=== PATIENT | female | born 1985 | race Caucasian/White ===

== ENCOUNTER 2018-11-26 08:09 | Inpatient (IN) | payer MEDICAID ==
[~2018-11-26] VITALS: Ht 160 cm; Wt 108.9 kg
[2018-11-26] VITALS (8 sets, daily range): BP systolic 104–137; BP diastolic 58–100; BMI 42.6
[2018-11-26 08:46] LABS: BASOPHILS 0.1 % (0-2); EOSINOPHILS 0.2 % (0-7); HEMOGLOBIN 14.7 g/dL (12-16); IMMATURE GRANULOCYTES 0.2 % (0-5); LYMPHOCYTES 12.5 % (15-50); MCH 30.1 pg (26.0-34.0); MCHC 33.4 g/dL (31.0-37.0); MEAN PLATELET VOLUME 10.8 fL (7.4-10.4); PLATELET COUNT 218 10x3/uL (130-400); RBC 4.89 10x6/uL (4.00-5.40); RDW 13.1 % (11.5-14.5); WBC 13.9 10x3/uL (4.8-10.8)
[2018-11-26 08:48] LABS: HCG URINE NEGATIVE (NEGATIVE)
[2018-11-26 08:49] LABS: APPEARANCE CLOUDY (CLEAR); BILIRUBIN NEGATIVE (NEGATIVE); COLOR YELLOW (YELLOW); GLUCOSE NEGATIVE (NEGATIVE); KETONE NEGATIVE (NEGATIVE); NITRITE NEGATIVE (NEGATIVE); PROTEIN 2+ mg/dL (NEGATIVE); UROBILINOGEN NORMAL (NORMAL)
[2018-11-26 08:50] LABS: BACTERIA MANY /hpf (NEGATIVE); EPITHELIAL CELLS 0-5 /hpf (0-5); RED CELLS - URINE 25-50 /hpf (0-5); WHITE CELLS - URINE >50 /hpf (NEGATIVE)
[2018-11-26 08:51] LABS: MUCUS >1+ /lpf (NONE SEEN)
[2018-11-26 09:00] LABS: ALBUMIN 3.4 g/dL (3.4-5.0); ALKALINE PHOSPHATASE 136 U/L (46-116); ALT (SGPT) 55 U/L (10-68); BILIRUBIN - TOTAL 0.52 mg/dL (0.2-1.3); CALC OSMOLALITY 269 mosm/kg (275-300); CALCIUM 9.1 mg/dL (8.5-10.1); CARBON DIOXIDE 29.4 mmol/L (21.0-32.0); CHLORIDE - SERUM 100 mmol/L (98-107); CREATININE - SERUM 0.7 mg/dL (0.6-1.3); GLUCOSE 106 mg/dL (74-106); POTASSIUM - SERUM 4.1 mmol/L (3.5-5.1); PROTEIN - SERUM 8.6 g/dL (6.4-8.2); SODIUM 136 mmol/L (136-145); UREA NITROGEN 7 mg/dL (7-18); eGFR NON AFRICAN AMERICAN > 90 mL/min (90-120)
[2018-11-26 09:03] LABS: AMYLASE - SERUM 37 U/L (25-115); LIPASE 67 U/L (73-393); TROPONIN-I < 0.017 ng/mL (0.000-0.060)
--- NOTE | 2018-11-26 10:00 | NUR ---
TO CT VIA STRETCHER WITH TECH
--- NOTE | 2018-11-26 10:11 | NUR ---
RTND FROM CT/ CONT TO CRY AND MOAN C/O 11/[address] ANDRES NOTIFIED
--- NOTE | 2018-11-26 10:50 | NUR ---
RESTING IN BED WITH EYES CLOSED. AROUSES EASILY WHEN NAME CALLED. CONT TO C/O PAIN "BUT A LITTLE BETTER"
--- NOTE | 2018-11-26 11:05 | NUR ---
ROCEPHIN PAUSED TO DRAW BC'S X2 AND LACTATE THEN RESTARTED
--- NOTE | 2018-11-26 12:17 | NUR ---
REPORT CALLED TO WILFREDO OSHEA BY SBAR FORMAT
--- NOTE | 2018-11-26 16:02 | NUR ---
PATIENT LAYING IN BED ON LEFT SIDE WTIH EYES CLOSED AND BREATHING EVENLY. WILL CONTINUE TO MONITOR. SR UP X 2 BED IN LOW POSITION AND CALL LIGHT IN REACH.
--- NOTE | 2018-11-26 16:31 | NUR ---
RICHARD HUBBARD IN ROOM. NEW ORDER RECEIVED FOR REGULAR DIET. RICHARD INSTRUCTED THIS NURSE TO DISCONNECT PATIENT FROM IV SO THAT PATIENT CAN WALK AROUND UNIT. ENTERED PATIENTS ROOM. PATIENT HAS RED FACE AND VISIBLY AGITATED. PATIENT STATES FORCIBLY "YOU NEED TO DISCONNECT ME FROM THIS PAUMP SO I CAN GO OUTSIDE." EXPLAINED TO PATIENT PER PREVIOUS CONVERSATION, THAT SHE IS ALLOWED TO WALK AROUND UNIT BUT NOT GO OUTSIDE. SHE PROCEEDED TO CALL THIS NURSE A FUCKING BITCH AND TOLD ME TO CALL RICHARD BECAUSE HE SAID SHE COULD GO OUTSIDE. SHE SAID IM NOT DEALING WITH YOU CUNT. CALLED RICHARD AND HE STATED THAT SHOULD COULD NOT WALK OUTSIDE BUT COULD WALK AROUND THE UNIT. I INFORMED HIM THAT SHE PREVIOUSLY REFUSED THE NICOTINE PATCH AND THAT I EDUCATED HER ON FACILITY POLICY OF NO SMOKING AND THAT SHE COULD NOT GO OUTSIDE WITH IV ACCESS OR TO SMOKE. RICHARD INFORMED THIS NURSE THAT HE WOULD SPEAK WITH ICE CREAM MACHINE OPERATOR AND CALL MEM BACK.
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
--- NOTE | 2018-11-26 19:49 | NUR ---
PT COMPLAINING OF SEVERE ABD PAIN TRAMADOL GIVEN PER APR. PT TEMP IS 100.4 ORAL WILL GIVE TYLENOL FOR FEVER. WILL CONTINUE TO MONITOR. CL IN REACH. DENIES FURTHER NEEDS. PT COMPLAINING OF BEING COLD AND CANT GET WARM. BLANKETS PROVIDED.
--- NOTE | 2018-11-27 01:30 | NUR ---
PT VISITING WITH BOYFRIEND. CL IN REACH. DENIES NEEDS AT THIS TIME. WCTM
--- NOTE | 2018-11-27 03:22 | NUR ---
PAIN PILL GIVEN FOR ABD PAIN PER MAR. CL IN REACH. DENIES FURTHER NEEDS. BOYFRIEND IN ROOM AND BROUGHT PT CHICKEN STRIPS EDUCATED ABOUT DIET. CPOC
[2018-11-27 04:30] VITALS: BP 140/85
--- NOTE | 2018-11-27 05:17 | NUR ---
PT TEMP THIS AM WAS 99.6 TYLENOL GIVEN PER MAR FOR FEVER. WILL CONTINUE TO MONITOR.
[2018-11-27 06:53] LABS: BASOPHILS 0.1 % (0-2); EOSINOPHILS 0.6 % (0-7); HEMATOCRIT 37.5 % (36.0-48.0); HEMOGLOBIN 12.1 g/dL (12-16); IMMATURE GRANULOCYTES 0.3 % (0-5); LYMPHOCYTES 18.3 % (15-50); MCH 29.4 pg (26.0-34.0); MCHC 32.3 g/dL (31.0-37.0); MCV 91.2 fL (80.0-100.0); MEAN PLATELET VOLUME 11.1 fL (7.4-10.4); MONOCYTES 6.5 % (2-11); NEUTROPHILS 74.2 % (40-80); PLATELET COUNT 192 10x3/uL (130-400); RBC 4.11 10x6/uL (4.00-5.40); RDW 13.4 % (11.5-14.5)
[2018-11-27 07:03] LABS: WBC 10.2 10x3/uL (4.8-10.8)
[2018-11-27 07:09] VITALS: BP 130/66
[2018-11-27 07:13] LABS: ALBUMIN 2.6 g/dL (3.4-5.0); ALKALINE PHOSPHATASE 114 U/L (46-116); ALT (SGPT) 47 U/L (10-68); BILIRUBIN - TOTAL 0.28 mg/dL (0.2-1.3); CALC OSMOLALITY 276 mosm/kg (275-300); CALCIUM 8.3 mg/dL (8.5-10.1); CARBON DIOXIDE 28.2 mmol/L (21.0-32.0); CHLORIDE - SERUM 105 mmol/L (98-107); GLUCOSE 122 mg/dL (74-106); POTASSIUM - SERUM 3.7 mmol/L (3.5-5.1); PROTEIN - SERUM 6.8 g/dL (6.4-8.2); SODIUM 139 mmol/L (136-145); UREA NITROGEN 7 mg/dL (7-18)
--- NOTE | 2018-11-27 07:15 | NUR ---
PT RESTING IN BED, SHIFT ASSESSMENT PERFORMED. VSS AND WNL. DENIES ANY NEEDS AT THIS TIME. WILL CONT TO FOLLOW POC
[2018-11-27 07:18] LABS: CREATININE - SERUM 0.5 mg/dL (0.6-1.3); eGFR NON AFRICAN AMERICAN > 90 mL/min (90-120)
--- NOTE | 2018-11-27 12:15 | NUR ---
PT RESTING IN BED EATING LUNCH, DENIES ANY NEEDS AT THIS TIME, WILL CONT TO FOLLOW POC
--- NOTE | 2018-11-27 14:39 | MORECARE ---
CASE MANAGEMENT DISCHARGE SUMMARY PATIENT: SÁNCHEZ DEVLIN UNIT: [id number] ADM DATE: 11/26/18 AGE: 33 : [birth year] SEX: F ROOM/BED: D.1213 AUTHOR: ANTONIO KHANNA PHYSICIAN: REFERRING PHYSICIAN: WERO PICHARDO MD DATE OF SERVICE: 11/27/18 Discharge Plan Patient Name: SÁNCHEZ DEVLIN Facility: [facility]:[place] : 1985 Planned Disposition: Home Anticipated Discharge Date: Discharge Date: Expected LOS: Initial Reviewer: [email or web address] Initial Review Date: 11/27/2018 Generated: 11/27/18 3:38 pm Comments DCP- Discharge Planning Updated by [email or web address]: Dana Vidal on 11/27/18 1:[address] Patient Name: SÁNCHEZ DEVLIN Admission Status: ER Accout number: [id number] Admission Date: 11-26-2018 : 1985 Admission Diagnosis: Attending: WERO PICHARDO Current LOS: 1 Anticipated DC Date: Planned Disposition: Home Primary Insurance: MEDICAID [place] PENDING Discharge Planning Comments: CM MET WITH PATIENT AFTER OBTAINING VERBAL CONSENT. STATES PLANS TO DISCHARGE TO HOME. STATES NON FROM HERE. DISCUSSED NEED FOR HH, REHAB OR EQUIPMENT, PATIENT STATES NO NEEDS. CM WILL FOLLOW AND ASSIST NEEDED. Bin Piler: Dana Vidal DCPIA - Discharge Planning Initial Assessment Updated by [email or web address]: Dana Vidal on 11/27/18 2:35 pm * Is the patient Alert and Oriented? Yes * PCP NONE * Pharmacy NO CERTAIN PHARM * ADLs Independent * Additional services required to return to the preadmission environment? No * Can the patient safely return to the preadmission environment? Yes * Has this patient been hospitalized within the prior 30 days at any hospital? No Patient Name: SÁNCHEZ DEVLIN Page [phone] at 1434 All edits/amendments must be made on the electronic document DICTATION DATE: 11/27/181437 VERTICAL PUNCH OPERATOR: APOLINAR 11/27/18 1438 RPT#: [id number] DC DATE: STATUS: ADM IN [place] [address] [place] [address] END OF REPORT
[2018-11-27 15:32] VITALS: Ht 160 cm; Wt 108.9 kg
--- NOTE | 2018-11-27 17:44 | NUR ---
PT RESTING IN BED EATING SUPPER. DENIES ANY NEEDS AT THIS TIME, WILL CONT TO FOLLOW POC
--- NOTE | 2018-11-27 19:40 | NUR ---
PT SITTING UP IN BED. CL IN REACH. DENIES NEEDS AT THIS TIME. BED IN LOW SIDE RAILS X2. A/O X4. RESP EVEN AND UNLABORED. LUNGS CLEAR. BOWEL ACTIVE X4. WCTM
[2018-11-27 19:58] VITALS: BP 153/89
--- NOTE | 2018-11-27 22:02 | NUR ---
PT COMPLAINING OF NOT HAVING BM IN A COUPLE OF DAYS AND WOULD LIKE MEDICATION TO HELP HAVE BM. PAGED JF FIGUEROA APN RAMP MANAGER. CHRISTOPHETM
--- NOTE | 2018-11-27 22:10 | NUR ---
RICHARD HUBBARD CALLED BACK AND ORDERED DUCOLAX 5MG OP X1 AND IF NOT ANY RESULTS OF A BM IN 4 HRS THEN GIVE ANOTHER 5 MG TAB. WCTM
[2018-11-27 23:52] VITALS: BP 150/100
--- NOTE | 2018-11-28 00:45 | NUR ---
JUST NOW RECIEVED MED FROM HOUSE SUP. EDUCATED PT THAT IN 4 HRS IF SHE HAS NOT HAD BM ANOTHER DOSE WILL BE GIVE. WILL CONTINUE TO MONITOR. CL IN REACH
--- NOTE | 2018-11-28 04:18 | NUR ---
I have reviewed this patient and I concur with the Shift Assessment completed by the Licensed Practical Nurse today this shift.
[2018-11-28 04:30] VITALS: BP 119/83
[2018-11-28 05:53] LABS: BASOPHILS 0.2 % (0-2); EOSINOPHILS 1.4 % (0-7); HEMATOCRIT 38.7 % (36.0-48.0); HEMOGLOBIN 12.5 g/dL (12-16); IMMATURE GRANULOCYTES 0.3 % (0-5); LYMPHOCYTES 26.7 % (15-50); MCH 29.4 pg (26.0-34.0); MCHC 32.3 g/dL (31.0-37.0); MCV 91.1 fL (80.0-100.0); MEAN PLATELET VOLUME 10.6 fL (7.4-10.4); MONOCYTES 6.1 % (2-11); NEUTROPHILS 65.3 % (40-80); PLATELET COUNT 194 10x3/uL (130-400); RBC 4.25 10x6/uL (4.00-5.40); RDW 13.1 % (11.5-14.5); WBC 9.1 10x3/uL (4.8-10.8)
[2018-11-28 06:17] LABS: CALCIUM 8.8 mg/dL (8.5-10.1); CARBON DIOXIDE 29.6 mmol/L (21.0-32.0); CHLORIDE - SERUM 106 mmol/L (98-107); CREATININE - SERUM 0.6 mg/dL (0.6-1.3); GLUCOSE 88 mg/dL (74-106); SODIUM 142 mmol/L (136-145); eGFR NON AFRICAN AMERICAN > 90 mL/min (90-120)
[2018-11-28 06:18] LABS: CALC OSMOLALITY 280 mosm/kg (275-300); POTASSIUM - SERUM 4.4 mmol/L (3.5-5.1); UREA NITROGEN 10 mg/dL (7-18)
--- NOTE | 2018-11-28 07:15 | NUR ---
PT RESTING IN BED, SHIFT ASSESSMENT PERFORMED. DENIES ANY NEEDS AT THIS TIME, WILL CONT TO FOLLOW POC
[2018-11-28 08:00] VITALS: BP 119/78
[2018-11-28] MEDS ORDERED: OMNICEF300 MG PO (08:28)
[2018-11-28] MEDS ORDERED: CIPRO500 MG PO (09:39)
--- NOTE | 2018-11-28 09:41 | NUR ---
SPOKE WITH RICHARD TORIBIO REGARDING PT NOT HAVING ANY INSURANCE AND NEEDED A CHEAPER ANTIBIOTIC. NEW ORDER RECIEVED TO CALL IN CIPRO 500MG Q12HR X10 DAYS. MEDICATION CALLED IN TO [facility] AND PT GIVEN A GOOD RX COUPON. DISCHARGE INSTRUCTIONS REVIEWED WITH PT AND ALL QUESTIONS ANSWERED. PIV REMOVED WITH CATHETER TIP INTACT. ASSISTED PT TO FRONT OF HOSPITAL WHERE SHE LEFT WITH FRIEND
--- NOTE | 2018-11-28 17:08 | MORECARE ---
CASE MANAGEMENT DISCHARGE SUMMARY PATIENT: SÁNCHEZ DEVLIN UNIT: [id number] ADM DATE: 11/26/18 AGE: 33 : 87 SEX: F ROOM/BED: D.1213 AUTHOR: ANTONIO KHANNA PHYSICIAN: REFERRING PHYSICIAN: WERO PICHARDO MD DATE OF SERVICE: 11/28/18 Discharge Plan Patient Name: SÁNCHEZ DEVLIN Facility: [facility]:[place] : 1985 Planned Disposition: Home Anticipated Discharge Date: Discharge Date: 11/28/2018 Expected LOS: Initial Reviewer: [email or web address] Initial Review Date: 11/27/2018 Generated: 11/28/18 6:07 pm DCP- Discharge Planning Updated by [email or web address]: Dana Vidal on 11/27/18 1:[address] Patient Name: SÁNCHEZ DEVLIN Admission Status: ER Accout number: [id number] Admission Date: 11-26-2018 : 1985 Admission Diagnosis: Attending: WERO PICHARDO Current LOS: 1 Anticipated DC Date: Planned Disposition: Home Primary Insurance: MEDICAID [place] PENDING Discharge Planning Comments: CM MET WITH PATIENT AFTER OBTAINING VERBAL CONSENT. STATES PLANS TO DISCHARGE TO HOME. STATES NON FROM HERE. DISCUSSED NEED FOR HH, REHAB OR EQUIPMENT, PATIENT STATES NO NEEDS. CM WILL FOLLOW AND ASSIST NEEDED. Managed Services Sales Consultant: Dana Vidal DCPIA - Discharge Planning Initial Assessment Updated by [email or web address]: Dana Vidal on 11/27/18 2:35 pm * Is the patient Alert and Oriented? Yes * PCP NONE * Pharmacy NO CERTAIN PHARM * ADLs Independent * Additional services required to return to the preadmission environment? No * Can the patient safely return to the preadmission environment? Yes * Has this patient been hospitalized within the prior 30 days at any hospital? No Last DP export: 11/27/18 1:39 Patient Name: SÁNCHEZ DEVLIN Page [phone] at 1705 All edits/amendments must be made on the electronic document DICTATION DATE: 11/28/181706 VAPOR COATER: APOLINAR 11/28/181706 RPT#: [id number] DC DATE:11/28/18 STATUS: DIS IN [facility] [address] [facility] [place] [address] END OF REPORT
== END 2018-11-28 10:33 | DRG 872 ==
LOC: D.ER 08:09 → D.M3 11:23
PROVIDERS: Emergency Medicine; Family Medicine; ADMIT Legal Medicine; ATTEND Legal Medicine
PROC: 05HC33Z Insertion of Infusion Device into Left Basilic Vein, Percutaneous Approach (ICD-10-PCS; principal; 2018-11-27)
PROC: B54NZZA Ultrasonography of Left Upper Extremity Veins, Guidance (ICD-10-PCS; 2018-11-27)
DX: A41.9 Sepsis, unspecified organism (principal); N12 Tubulo-interstitial nephritis, not specified as acute or chronic; Z72.0 Tobacco use; B96.20 Unspecified Escherichia coli [E. coli] as the cause of diseases classified elsewhere

== ENCOUNTER 2019-02-23 14:40 | Emergency (ER) | payer SELFPAY ==
[~2019-02-23 14:40] MED LIST: CIPRO500 MG PO; OMNICEF300 MG PO
[2019-02-23 14:57] VITALS: Ht 160 cm
[2019-02-23 16:16] LABS: BASOPHILS 0.3 % (0-2); EOSINOPHILS 0.6 % (0-7); HEMATOCRIT 41.7 % (36.0-48.0); HEMOGLOBIN 13.6 g/dL (12-16); IMMATURE GRANULOCYTES 0.1 % (0-5); MCHC 32.6 g/dL (31.0-37.0); MCV 88.9 fL (80.0-100.0); MEAN PLATELET VOLUME 10.7 fL (7.4-10.4); MONOCYTES 4.9 % (2-11); NEUTROPHILS 63.1 % (40-80); PLATELET COUNT 208 10x3/uL (130-400); RBC 4.69 10x6/uL (4.00-5.40); RDW 12.9 % (11.5-14.5); WBC 7.1 10x3/uL (4.8-10.8)
[2019-02-23 16:45] LABS: CALC OSMOLALITY 278 mosm/kg (275-300); CALCIUM 8.9 mg/dL (8.5-10.1); CARBON DIOXIDE 28.1 mmol/L (21.0-32.0); CHLORIDE - SERUM 105 mmol/L (98-107); CREATININE - SERUM 0.5 mg/dL (0.6-1.3); GLUCOSE 78 mg/dL (74-106); POTASSIUM - SERUM 4.2 mmol/L (3.5-5.1); SODIUM 141 mmol/L (136-145); UREA NITROGEN 10 mg/dL (7-18); eGFR NON AFRICAN AMERICAN > 90 mL/min (90-120)
[2019-02-23 16:53] LABS: ALBUMIN 3.2 g/dL (3.4-5.0); ALKALINE PHOSPHATASE 109 U/L (46-116); ALT (SGPT) 35 U/L (10-68); PROTEIN - SERUM 6.9 g/dL (6.4-8.2)
[2019-02-23] MEDS ORDERED: SMZ-TMP DS 800-1 TAB PO (19:32)
[2019-02-23] MEDS ORDERED: CLEOCIN HCL300 MG PO (19:32)
[2019-02-23] MEDS ORDERED: PROBIOTIC1 EAC1 PO (19:32)
[2019-02-23 19:57] VITALS: BP 120/78
== END 2019-02-23 19:57 | disposition home or self-care (01) ==
LOC: D.ER 14:40
PROVIDERS: Emergency Medicine
DX: L02.414 Cutaneous abscess of left upper limb (principal); F19.90 Other psychoactive substance use, unspecified, uncomplicated

== ENCOUNTER 2019-03-14 20:22 | Emergency (ER) | payer SELFPAY ==
[~2019-03-14] VITALS: Ht 160 cm; Wt 109.1 kg
[~2019-03-14 20:22] MED LIST changes: +CLEOCIN HCL300 MG PO; +PROBIOTIC1 EAC1 PO; +SMZ-TMP DS 800-1 TAB PO
[2019-03-14 20:49] VITALS: Ht 160 cm; Wt 109.1 kg
[2019-03-14] MEDS ORDERED: ROBITUSSIN DM 110 ML PO (22:36)
[2019-03-14] MEDS ORDERED: ZITHROMAX TRI-500 MG PO (22:36)
[2019-03-14] MEDS ORDERED: AMOXICILLIN875 MG PO (22:36)
[2019-03-14 22:46] VITALS: BP 127/73
== END 2019-03-14 22:46 | disposition home or self-care (01) ==
LOC: D.ER 20:22
DX: J02.9 Acute pharyngitis, unspecified (principal); J06.9 Acute upper respiratory infection, unspecified; F17.210 Nicotine dependence, cigarettes, uncomplicated

== ENCOUNTER 2020-04-21 00:41 | Inpatient (IN) | payer MEDICAID ==
[~2020-04-21] VITALS: Ht 160 cm; Wt 104.5 kg
[2020-04-21] VITALS (7 sets, daily range): BP systolic 120–189; BP diastolic 68–117; Ht 160 cm; Wt 104.5 kg
--- NOTE | ~2020-04-21 | HEMODYNAMI ---
PATIENT:SÁNCHEZ DEVLIN MEDICAL RECORD: [id number] : [birth year] LOCATION:[facility] D.2118 ADMISSION DATE: 04/21/20 Generatedon:111:16 Patient name: SÁNCHEZ DEVLIN Patient #: [id number] : 1985 Date of study: 04/21/2020 Page: Of Hemodynamic Procedure Report Patient Data Patient Demographics Procedure consent was obtained First Name: SÁNCHEZ Gender: Female Last Name: : 1985 Patient #: [id number] Age: 34 year(s) Race: Unknown SSN: [id number] Additional ID: [id number] Contact details [address]: [address] [place] [address] rd State: [place] City: [place] Zip code: [address] Past Medical History Allergies Allergen Reaction Date Comments Reported Other allergy 04/21/2020 TORADOL, TRAMADOL Admission Admission Data Admission Date: 04/21/2020 Admission Time: 4:15 Arrival Date: 04/21/2020 Arrival Time: 0:00 Admit Source: Other Insurance Payor: Medicaid Room #: D.2118 [facility] #: [id number] Height (in.): 62.99 BSA: 2.05 (m2) Height (cm.): 160 BMI: 40.62 (kg/m2) Weight (lbs.): 229.28 Weight (kg.): 104 Lab Results Lab Result Date: 04/21/2020 Lab Result Time: 0:00 Biochemistry Name Units Result Min Max BUN mg/dl 17 --(---*)-- 7 18 Creatinine mg/dl 1 --(--*-)-- 0.6 1.3 eGFR ml/min 67.40628 *-(----)-- 90 120 NONAFRICAN CBC Name Units Result Min Max Hemoglobin g/dl 12.3 *-(----)-- 13.5 17.5 Procedure Procedure Types Cath Procedure Diagnostic Procedure [facility]Coron[facility] Procedure Description Procedure Date Procedure Date: 04/21/2020 Procedure Start Time: 11:04 Procedure End Time: 11:16 Procedure Staff Name Function Elijah Marsh MD Performing Physician Roseanne Lance RT Monitor Andre Estrada RN Nurse Esha Alejandre RT Scrub Indication Chest pain Procedure Data Cath Procedure Fluoroscopy Diagnostic fluoroscopy Total fluoroscopy Time: 1.1 time: 1.1 min min Diagnostic fluoroscopy Total fluoroscopy dose: 411 dose: 411 mGy mGy Contrast Material Contrast Material Type Amount (ml) Isovue 300 56 Entry Location Entry Primary Successful Side Size Upsize Upsize Entry Closure Succes sful Closure Location (Fr) 1 (Fr) 2 (Fr) Remarks Device Remarks Femoral Right 5 Fr Exoseal artery Estimated blood loss: 10 ml Diagnostic catheters Device Type Used For End Catheter Placement MULTIPACK JL 4.0 5Fr Procedure catheter MULTIPACK 3DRC 5Fr Procedure catheter MULTIPACK Pigtail 5 Fr Ventriculography catheter Procedure Complications No complications Procedure Medications Medication Administration Route Dosage Oxygen etCO2 Nasal cannula 2 l/min Lidocaine 2% added to field 20 Heparin Flush Bag added to field 2 bags (1000units/500ml NS) 0.9% NaCl I.V. 100 ml/hr Versed I.V. 1 mg Fentanyl I.V. 50 mcg Hemodynamics Rest BSA: 2.05 (m2) O2 Consumption: Estimated: 219.32 (ml/min) O2 Consumption indexed : Estimated:106.99 (ml/min/m) Heart Rate: 74 (bpm) Pressure Samples Time Site Value (mmHg) Purpose Heart Use Rate(bpm) 11:11 LV 133/17,18 Snapshot 74 11:11 AO 142/83(106) Pullback 85 Gradients Valve Time Site Site 2 Mean SEP/DFP Peak To Heart Use 1 (mmHg) (sec/min) Peak Rate (mmHg) (bpm) Aortic 11:11 LV AO 13 10 85 142/83(106) Calculations Valve P-P Mean Valve Index Valve Source Name Gradient Area Flow (cm2) Aortic 13 13 Snapshots Pre Cath Intra NCS Post Cath Vital Signs Time Heart Resp SPO2 etCO2 NIBP (mmHg) Rhythm Pain Sedation Rate (ipm) (%) (mmHg) Status Level (bpm) 10:54:06 95 20 100 37.6 132/77(101) NSR 0 (11) 10(A) , No pain 10:58:37 97 12 100 45.9 132/75(100) NSR 0 (11) 10(A) , No pain 11:03:05 93 12 100 33.1 127/80(106) NSR 0 (11) 10(A) , No pain 11:07:31 87 14 100 46.7 133/80(110) NSR 0 (11) 10(A) , No pain 11:12:00 87 14 100 47.5 134/84(107) NSR 0 (11) 10(A) , No pain 11:16:28 89 13 100 46.7 144/83(121) NSR 0 (11) 10(A) , No pain Medications Time Medication Route Dose Verified Delivered Reason Notes Eff ectiveness by by 10:53:41 Oxygen etCO2 2 Elijah Rodrigoie used for Nasal l/min [facility] M[facility]or Estrada RN procedure cannula 10:53:49 Lidocaine 2% added 20ml Elijah Nava for local to vial [facility] anesthetic field MD OCHOA 10:53:57 Heparin Flush added 2 Elijah Elijah used for Bag to bags [facility] procedure (1000units/500ml field MD OCHOA NS) 10:54:07 0.9% NaCl I.V. 100 Elijah Powell Per ml/hr [facility] Mynor Estrada RN physician 11:00:10 Versed I.V. 1 mg [address] for [facility] Mynor Estrada RN sedation 11:00:15 Fentanyl I.V. 50 Elijah Wallaceie for mcg [facility] Mynor Estrada RN sedation Procedure Log Time Note 10:08:33 Arrival Date: 04/21/2020 12:00:00 AM 10:08:42 Admit Source: Other 10:08:49 Insurance Payor : Medicaid 10:08:57 Patient Height : 62.99 inches 10:09:01 Patient Weight : 229.28 lbs 10:09:39 Lab Result : Hemoglobin 12.3 g/dl 10:09:39 Lab Result : eGFR NONAFRICAN 67.87031 ml/min 10:09:39 Lab Result : BUN 17 mg/dl 10:09:39 Lab Result : Creatinine 1 mg/dl 10:10:36 Indication : Chest pain 10:10:52 Procedure Status Urgent Heart Cath (IP). 10:11:06 Roseanne ELLIS(R) sent for patient. Start room use. 10:31:59 Time tracking: Regular hours (M-F 7:00 - 5:00) 10:32:04 Plan of Care:Hemodynamics will remain stable., Cardiac rhythm will remain stable., Comfort level will be maintained., Respiratory function will remain adequate., Patient/ family verbilizes understanding of procedure., Procedure tolerated without complication., Recovers from procedure without complications.. 10:32:11 Patient received from Med II to CCL 1 Alert and oriented. Tansferred to table in Supine position. 10:32:13 Signed procedure consent form obtained from patient. 10:32:14 Warm blankets applied, and carroll hugger turned on for patient comfort. 10:32:15 Correct patient and procedure confirmed by team. 10:32:16 ECG and BP/O2 sat monitors applied to patient. 10:36:34 Full Disclosure recording started 10:36:41 H&P Date Dictated: 04/21/2020 Within 30 days and on chart., H&P Addendum completed by physician on day of procedure. (MUST COMPLETE FOR ALL OUTPATIENTS). 10:36:43 Family unavailable. 10:36:44 Pre-procedure instructions explained to patient. 10:36:44 Pre-op teaching completed and patient verbalized understanding. 10:36:45 Patient NPO since Midnight. 10:37:05 Patient allergic to Other allergyTORADOL, TRAMADOL 10:37:08 Is the patient allergic to Iodine/contrast media? No. 10:37:11 Is patient on blood thinner?No 10:38:34 Patient diabetic? No. 10:38:47 HCG/Urine : completed and on chart, negative 10:38:57 Previous problem with sedation/anesthesia? No ? 10:42:30 Snore? Yes 10:42:39 Sleep apnea? No 10:42:40 Deviated septum? Yes 10:42:41 Opens mouth fully? Yes 10:42:42 Sticks out tongue? Yes 10:42:44 Airway obstruction? No ? 10:42:46 Dentures? No ? 10:43:13 Pre procedure: right dorsailis pedis pulse 1+ Palpable, but thready & weak; easily obliterated 10:43:31 Patient pain scale 6/10 ?. 10:43:39 IV patent on arrival in left hand with 0.9% NaCl at [facility]. 10:43:42 Lab results completed and on chart. 10:44:00 Right groin area was prepped with chlora-prep and draped in sterile fashion 10:44:01 Alarms reviewed by John N. 10:44:02 Sharps counted by scrub and verified by Amy. 10:44:31 Physician paged 10:51:17 Physician arrived 10:51:17 --------ALL STOP TIME OUT------ 10:51:18 Final Timeout: patient, procedure, and site verified with staff and physician. All members of the team are in agreement. 10:51:22 Right groin site verified by team. 10:51:27 Fire Safety Assessment: A--An alcohol-based skin anteseptic being used preoperatively., C--Open oxygen or nitrous oxide is being used., D--An ESU, laser, or fiber-optic light is being used. 10:51:42 Physical assessment completed. ASA score P 2 - A patient with mild systemic disease as per Elijah Marsh MD. 10:51:50 2) 60-89 Mildly reduced kidney function, and other findings (as for stage 1) point to kidney disease. 10:51:55 Maximum allowable contrast dose (3.7 X eGFR X 0.75)188 ml. 10:52:01 Sedation plan: IV Moderate Sedation Medication:Versed, Fentanyl 10:52:06 Use device set Femoral Dx 10:52:07 ACIST Syringe (96795) opened to sterile field. 10:52:08 Bag Decanter (2001S) opened to sterile field. 10:52:09 Medline Cath Pack ([id number]) opened to sterile field. 10:52:10 ACIST Hand Control (70101) opened to sterile field. 10:52:10 ACIST Manifold (74318) opened to sterile field. 10:52:11 DIAGNOSTIC Multipack 5Fr catheter set (IJ5556) opened to sterile field. 10:52:12 Tegaderm 4 x 4 (1626W) opened to sterile field. 10:52:13 SHEATH 5FR Hannibal (KQL647) opened to sterile field. 10:52:17 EMERALD Guide Wire (650-121) opened to sterile field. 10:52:43 Vital chart was started 10:53:41 Oxygen 2 l/min etCO2 Nasal cannula was administered by Andre Estrada RN; used for procedure; Verbal order read back and verified. 10:53:49 Lidocaine 2% 20ml vial added to field was administered by Elijah Marsh MD; for local anesthetic; Verbal order read back and verified. 10:53:57 Heparin Flush Bag (1000units/500ml NS) 2 bags added to field was administered by Elijah Marsh MD; used for procedure; Verbal order read back and verified. 10:54:07 0.9% NaCl 100 ml/hr I.V. was administered by Andre Estrada RN; Per physician; Verbal order read back and verified. 11:00:10 Versed 1 mg I.V. was administered by Andre Estrada RN; for sedation; Verbal order read back and verified. 11:00:15 Fentanyl 50 mcg I.V. was administered by Andre Estrada RN; for sedation; Verbal order read back and verified. 11:01:51 Zero performed for pressure channel P1 11:02:03 Zero performed for pressure channel P1 11:02:32 Zero performed for pressure channel P1 11:03:00 Procedure started. 11:04:26 Local anesthetic to right femoral artery with Lidocaine 2% by Elijah Marsh MD.INITIAL ACCESS ONLY 11:06:54 A 5 Fr sheath was inserted into the Right Femoral artery 11:07:06 A MULTIPACK JL 4.0 5Fr catheter was advanced over the wire and used for Procedure. 11:08:19 LCA angiography performed. 11:09:17 Catheter removed. 11:09:24 A MULTIPACK 3DRC 5Fr catheter was advanced over the wire and used for Procedure. 11:10:16 RCA angiography performed. 11:10:29 Catheter removed. 11:10:41 A MULTIPACK Pigtail 5 Fr catheter was advanced over the wire and used for Ventriculography. 11:11:55 LV gram done using ANRDE 11:12:00 EF : 55 % 11:12:02 Catheter removed. 11:12:18 Sheath removed intact; hemostasis achieved with Exoseal to the Right Femoral artery. 11:12:22 EXOSEAL 5Fr (EX500) opened to sterile field. 11:12:25 Procedure ended.(Physican Out) 11:12:52 Fluoroscopy time 01.10 minutes. ::57 Fluoroscopy dose: 411 mGy 11:12:57 Flurop Dose total: 411 11:13:01 Dose Area Product 62767 mGy/cm. 11:13:06 Contrast amount:Isovue 300 56ml. 11:13:09 Maximum allowable dose exceeded? No. 11:13:12 Sharps counted by scrub and verified by R.N. 11:13:13 Insertion/operative site no bleeding no hematoma. 11:13:17 Post-op/insertion site Right Femoral artery dressed using a 4 x 4 and Tegaderm. 11:13:55 Post right femoral artery:stable 11:14:02 Post-procedure physical assessment completed. ASA score P 2 - A patient with mild systemic disease as per Elijah Marsh MD. 11:14:05 Post procedure rhythm: sinus rhythm 11:14:09 Estimated blood loss: 10 ml 11:14:12 Post procedure instruction explained to patient.Patient verbalizes understanding. 11:14:41 Procedure and supply charges have been captured, reviewed, submitted and are correct. 11:15:05 Procedure and supply charges have been captured, reviewed, submitted and are correct. 11:15:31 Procedure and supply charges have been captured, reviewed, submitted and are correct. 11:15:57 Procedure Complication : No complications 11:16:00 Vital chart was stopped 11:16:01 [facility] Findings: mild to moderate CAD (<70%) 11:16:05 See physician's report for complete and final results. 11:16:15 Report given to [facility]. 11:16:19 Patient transfered to [facility] with Bed. 11:16:21 Procedure ended. 11:16:21 Full Disclosure recording stopped 11:16:23 End room use (Document Last) Device Usage Item Name Manufacture Quantity Catalog Hospital Part Current Minimal L ot# / Number Charge Number Stock Stock Serial# Code ACIST Acist 1 42639 [id number] 720897 798982 20 Syringe Medical (32751) Systems Inc Bag Microtek 1 841104 77261 050965 5 Decanter Medical Inc. () Medline Medline 1 [id number] 735919 92512 528155 5 Cath Pack ([id number]) ACIST Hand Acist 1 77376 406356 434621 637827 5 Control Medical (86371) Systems Inc ACIST Acist 1 05836 604659 014012 022601 5 Manifold Medical (99287) Systems Inc DIAGNOSTIC Cardinal 1 [id number] 036149 85404 930519 30 Multipack Health 5Fr catheter set (DR0639) Tegaderm 4 3M 1 1626W 231887 930764 272096 5 x 4 (1626W) SHEATH 5FR Terumo 1 [id number] 526238 977748 677132 5 Hannibal (WXX431) EMERALD Cardinal 1 502-455 659537 263031 271003 5 Guide Wire [facility] (502-455) MULTIPACK Cardinal 1 343922 5 JL 4.0 5Fr Health catheter MULTIPACK Cardinal 1 552959 5 3DRC 5Fr Health catheter MULTIPACK Cardinal 1 744433 5 Pigtail 5 Health Fr catheter EXOSEAL 5Fr Cardinal 1 EX500 461834 972116 898665 10 (EX500) Health Signature Audit [place] Stage Time Signature Unsigned Intra-Procedure 04/21/2020 Roseanne Lance 11:15:05 AM RT(R) Intra-Procedure 04/21/2020 Andre Estrada RN 11:15:31 AM Intra-Procedure 04/21/[address] 11:16:49 AM Mynor OCHOA [facility] [address] [place] [address]
[~2020-04-21 00:41] MED LIST changes: +AMOXICILLIN875 MG PO; +ROBITUSSIN DM 110 ML PO; +ZITHROMAX TRI-500 MG PO
[2020-04-21 01:34] LABS: BASOPHILS 0.2 % (0-2); EOSINOPHILS 0.9 % (0-7); HEMATOCRIT 38.9 % (36.0-48.0); HEMOGLOBIN 12.3 g/dL (12-16); IMMATURE GRANULOCYTES 0.2 % (0-5); LYMPHOCYTE ABS# 2.94 10x3/uL (1.18-3.74); LYMPHOCYTES 29.8 % (15-50); MCH 27.2 pg (26.0-34.0); MCHC 31.6 g/dL (31.0-37.0); MCV 85.9 fL (80.0-100.0); MEAN PLATELET VOLUME 10.6 fL (7.4-10.4); MONOCYTES 3.2 % (2-11); NEUTROPHIL ABS# 6.48 10x3/uL (1.56-6.13); NEUTROPHILS 65.7 % (40-80); PLATELET COUNT 244 10x3/uL (130-400); RBC 4.53 10x6/uL (4.00-5.40); RDW 14.9 % (11.5-14.5); WBC 9.9 10x3/uL (4.8-10.8)
[2020-04-21 01:35] LABS: BILIRUBIN NEGATIVE (NEGATIVE); HCG URINE NEGATIVE (NEGATIVE); KETONE NEGATIVE (NEGATIVE); NITRITE NEGATIVE (NEGATIVE); UROBILINOGEN NORMAL mg/dL (< 2)
[2020-04-21 01:39] LABS: BACTERIA FEW HPF (NONE SEEN); SQUAMOUS EPITHELIAL 0-5 HPF (0-4)
[2020-04-21 01:56] LABS: APTT 25.3 SECONDS (22.8-39.4); INR 1.03 (0.85-1.17); PROTIME 12.5 SECONDS (11.6-15.0)
[2020-04-21 01:59] LABS: CALC OSMOLALITY 279 mosm/kg (275-300); CALCIUM 8.8 mg/dL (8.5-10.1); CARBON DIOXIDE 29.8 mmol/L (21.0-32.0); CHLORIDE - SERUM 101 mmol/L (98-107); POTASSIUM - SERUM 3.6 mmol/L (3.5-5.1); SODIUM 137 mmol/L (136-145); UREA NITROGEN 17 mg/dL (7-18); eGFR NON AFRICAN AMERICAN 68 mL/min (90-120)
[2020-04-21 02:00] LABS: GLUCOSE 172 mg/dL (74-106)
[2020-04-21 02:17] LABS: ALBUMIN 3.1 g/dL (3.4-5.0); ALKALINE PHOSPHATASE 129 U/L (30-120); ALT (SGPT) 33 U/L (10-68); BILIRUBIN - TOTAL 0.23 mg/dL (0.2-1.3); PRO BNP 8 pg/mL (0-125); PROTEIN - SERUM 7.4 g/dL (6.4-8.2); TROPONIN-I < 0.017 ng/mL (0.000-0.060)
[2020-04-21] MEDS ORDERED: NEURONTIN600 MG PO (06:08)
[2020-04-21] MEDS ORDERED: EFFEXOR75 MG PO (06:08)
[2020-04-21] MEDS ORDERED: LASIX20 MG PO (06:09)
[2020-04-21] MEDS ORDERED: ERGOCALCIF50000 UNIT PO (06:10)
--- NOTE | 2020-04-21 09:16 | NUR ---
CONSENTS SIGNED FOR [facility]. WILL CONT. PLAN OF CARE.
[2020-04-21 09:30] LABS: CHOL - HDL RATIO 6.3 ratio (2.3-4.1); LDL-HDL RATIO 3.3 ratio (1.5-3.5)
--- NOTE | 2020-04-21 10:34 | NUR ---
PRE-OPS GIVEN. TO HEADRIG SAWYER BY BED.
[2020-04-21 10:58] LABS: CKMB 0.2 U/L (0.0-3.6); CREATINE KINASE 80 UL (21-215); TROPONIN-I < 0.017 ng/mL (0.000-0.060)
--- NOTE | 2020-04-21 11:34 | NUR ---
BACK FROM SORTER UPHOLSTERY PARTS. VS WNL. RIGHT GROIN STABLE WITHOUT BLEEDING OR HEMATOMA NOTED.
--- NOTE | 2020-04-21 13:24 | NUR ---
BED REST UP. GROIN STABLE.
[2020-04-21 16:37] LABS: CKMB 0.5 U/L (0.0-3.6); CREATINE KINASE 85 UL (21-215); TROPONIN-I < 0.017 ng/mL (0.000-0.060)
--- NOTE | 2020-04-21 20:06 | NUR ---
RECIEVED UP IN BED WITH EYES CLOSED. ALERT AND ORIENTED X4. TELEMETRY IN PLACE. DSG TO RT GROIN CDI. IV TO RT UPPER ARM. DENIES ANY NEEDSA T THIS TIME.
[2020-04-21 22:14] LABS: CKMB 0.2 U/L (0.0-3.6); CREATINE KINASE 104 UL (21-215); TROPONIN-I < 0.017 ng/mL (0.000-0.060)
[2020-04-22] VITALS: BP 134/80
[2020-04-22 06:11] LABS: BASOPHILS 0.2 % (0-2); EOSINOPHILS 0.7 % (0-7); HEMATOCRIT 46.4 % (36.0-48.0); HEMOGLOBIN 14.9 g/dL (12-16); IMMATURE GRANULOCYTES 0.2 % (0-5); LYMPHOCYTES 21.1 % (15-50); MCHC 32.1 g/dL (31.0-37.0); MCV 84.2 fL (80.0-100.0); MEAN PLATELET VOLUME 10.5 fL (7.4-10.4); MONOCYTES 4.8 % (2-11); NEUTROPHIL ABS# 7.64 10x3/uL (1.56-6.13); PLATELET COUNT 296 10x3/uL (130-400); RBC 5.51 10x6/uL (4.00-5.40); RDW 14.6 % (11.5-14.5); WBC 10.5 10x3/uL (4.8-10.8)
[2020-04-22 06:22] VITALS: BP 104/45
[2020-04-22 06:28] LABS: MAGNESIUM - SERUM 2.1 mg/dL (1.8-2.4)
[2020-04-22 06:48] LABS: BILIRUBIN - TOTAL 0.38 mg/dL (0.2-1.3); CALCIUM 9.5 mg/dL (8.5-10.1); CARBON DIOXIDE 35.5 mmol/L (21.0-32.0); PROTEIN - SERUM 8.4 g/dL (6.4-8.2)
[2020-04-22 06:50] LABS: ALBUMIN 3.9 g/dL (3.4-5.0); ANION GAP 11.4 mmol/L (8-16)
[2020-04-22 06:52] LABS: POTASSIUM - SERUM 2.9 mmol/L (3.5-5.1)
[2020-04-22 08:32] VITALS: BP 134/86
--- NOTE | 2020-04-22 10:30 | NUR ---
PT SLEEPY BUT AROUSES TO VOICE. BREAKFAST HEATED UP. MEDS GIVEN. PLANS FOR DISCHARGE TODAY.
--- NOTE | 2020-04-22 10:31 | NUR ---
PT K+2.9, TALKED WITH LISA HUBBARD AND 40 MEQ GIVEN ORALLY.
--- NOTE | 2020-04-22 13:37 | NUR ---
PT DISCHARGE INSTRUCTIONS REVIEWED AND SIGNED. FAMILY HERE TO PICK HER UP. IV OUT AND TELEMETRY REMOVED.
--- NOTE | 2020-04-22 19:44 | MORECARE ---
CASE MANAGEMENT DISCHARGE SUMMARY PATIENT: SÁNCHEZ DEVLIN UNIT: [id number] ADM DATE: 04/21/20 AGE: 34 : [birth year] SEX: F ROOM/BED: D.2116 AUTHOR: ANTONIO KHANNA PHYSICIAN: REFERRING PHYSICIAN: DANIEL SMITH MD DATE OF SERVICE: 04/22/20 Discharge Plan Patient Name: SÁNCHEZ DEVLIN [facility] [facility] 1985 Planned Disposition: Home Anticipated Discharge Date: Discharge Date: 04/22/2020 Expected LOS: Initial Reviewer: [email or web address] Initial Review Date: 04/21/2020 Generated: 04/22/20 8:43 pm Comments DCP- Discharge Planning Updated by [email or web address]: Brittany Alexander on 04/22/20 6:[address] CM caught patient just as she was leaving. Patient denies any discharge needs. She has family with her to transport. her home. Patient Name: SÁNCHEZ DEVLIN Page [id number] at 1944 All edits/amendments must be made on the electronic document DICTATION DATE: 04/22/201943 [employer] TECHNICIAN: APOLINAR 04/22/201943 RPT#: [id number] DC DATE:04/22/20 STATUS: DIS IN [facility] [address] [place] [address] END OF REPORT
--- NOTE | 2020-04-23 09:41 | EC ---
PATIENT:SÁNCHEZ DEVLIN DATE OF SERVICE: 04/21/20 SEX: F MEDICAL RECORD: [id number] DATE OF : [birth year] LOCATION:D.M2 D.211 AGE OF PATIENT: 34 ADMISSION DATE: 04/21/20 REFERRING PHYSICIAN: INTERPRETING PHYSICIAN: LUIS MICHELLE MD ECHOCARDIOGRAM REPORT ECHO CHARGES 4 ECHO COMPLETE Date: 04/21/20 CLINICAL DIAGNOSIS: ANACARCA, CP, CHF ECHOCARDIOGRAPHIC MEASUREMENTS (adult normal given) AC root (d.<3.7cm) 2.9 cm LV Septum d (<1.2 cm> 0.9 cm Valve Excursion 1.2 cm LV Septum (systole) 1.6 cm Left Atria (s.<4.0cm> 3.0 cm LVPW d(<1.2cm) 0.9 cm RV (d.<2.3cm) 2.0 cm LVPW (sytole) 1.4 cm LV diastole(<5.6CM) 5.5 cm MV E-F(>70mm/sec) cm LV systole 3.5 cm LVOT Diameter 1.9 cm MV exc.(>10mm) 1.3 cm Est.ejection fraction (50-75%) % DOPPLER: LVIT cm/sec A 65 cm/sec E 60 cm/sec LA cm/sec RVSP 15 mmHg LVOT 112 cm/sec AOP1/2T m/s Asc. Ao 109 cm/sec RVOT 82 cm/sec RA cm/sec PA 94 cm/sec AV Gradient Peak 4.8 mmHg AV Mean 2.5 mmHg AV Area 3.2 cm MV Gradient Peak 2.7 mmHg MV Mean 1.8 mmHg MV Area cm COMMENTS: Radio Interference Supervisor: Jonathan WHITTINGTON Electrician Constructor Supervisor: 3 Dr. Andrews TAPE# Pericardial Effusion N DATE OF SERVICE: Adequate 2D, color-flow imaging, spectral Doppler, and M-Mode FINDINGS: No LVH. LV internal dimensions are normal. Wall motion was normal. EF is greater than or equal to 55%. Aortic valve is tricuspid. No evidence of stenosis by Doppler interrogation. Left atrium is normal. Mitral valve shows no prolapse. Trace MR. Right side is grossly normal. Trace TR. TRANSINT:[id number] Voice Confirmation ID: [id number] DOCUMENT ID: [id number] ECHOCARDIOGRAM REPORT [id number] SÁNCHEZ LUIS MICHELLE MD at 0941 CC: [id number] DICTATION DATE: 04/22/20 08 SENIOR CARE SPECIALIST: 04/22/20 0854 DIS IN 04/22/20 [address] [place] [address]
--- NOTE | 2020-04-23 09:41 | OP ---
PATIENT NAME: SÁNCHEZ DEVLIN MEDICAL RECORD: [id number] :[birth year] LOCATION:D.M2 D.8 ADMISSION DATE:04/21/20 SURGEON: LUIS MICHELLE MD DATE OF OPERATION: 04/21/2020 PROCEDURE: Left heart catheterization, selective coronary angiography right femoral artery approach. CATHETERS: A 5-Lithuanian sheath, 5/4 left and right Maurisio, 5/4 pig. The procedure was well tolerated. The patient returned to the cruz, sheath removed. ExoSeal device placed. FINDINGS: Left ventriculography in 30-degree ANDRE view, normal wall motion, normal systolic function. CORONARY ANATOMY: Left main: Left main is free of disease. LAD: Free of disease in the diagonal system. Circumflex: Free of disease in the marginal system. Right coronary artery: Dominant artery, gives rise to PDA, free of disease. IMPRESSION: Normal systolic function, normal coronary anatomy. TRANSINT:[id number] Voice Confirmation ID: [id number] DOCUMENT ID: [id number] LUIS MICHELLE MD at 0941 CC: [id number] DICTATION DATE: 04/21/20 1122 MANAGER PRODUCTION: 04/21/202032 DIS IN 04/22/20 [facility] [address] [place] [address]
== END 2020-04-22 13:38 | disposition home or self-care (01) | DRG 287 ==
LOC: D.ER 00:41 → D.M2 04:15
PROVIDERS: Emergency Medicine; Internal Medicine Interventional Cardiology; ADMIT Family Medicine; ATTEND Family Medicine
PROC: B2151ZZ Fluoroscopy of Left Heart using Low Osmolar Contrast (ICD-10-PCS; 2020-04-21)
PROC: 4A023N7 Measurement of Cardiac Sampling and Pressure, Left Heart, Percutaneous Approach (ICD-10-PCS; 2020-04-21)
PROC: B2111ZZ Fluoroscopy of Multiple Coronary Arteries using Low Osmolar Contrast (ICD-10-PCS; principal; 2020-04-21 10:11)
DX: I50.9 Heart failure, unspecified (principal); E87.1 Hypo-osmolality and hyponatremia; Z68.41 Body mass index [BMI] 40.0-44.9, adult; E66.01 Morbid (severe) obesity due to excess calories; E87.6 Hypokalemia